=== PATIENT | female | born 1975 | race Caucasian/White ===

== ENCOUNTER 2017-04-08 18:52 | Emergency (ER) | payer OTHER ==
[~2017-04-08] VITALS: Ht 167.6 cm; Wt 73.0 kg
[~2017-04-08 18:52] MED LIST: ALBU8I INH; BENZ100 PO; ZITH250T PO
[2017-04-08 20:00] LABS: BACTERIA, URINE MOD /hpf; BLOOD, URINE NEG (NEG); COMMENT (UR) CULTURE INDICATED; CULTURE IF INDICATED CULTURE INDICATED; GLUCOSE,URINE NEG (NEG); KETONE, URINE NEG (NEG); NITRITE,URINE NEG (NEG); PH, URINE 7.5 (5.0-8.5); SQUAMOUS EPITHELIAL CELL URINE 4 /hpf (0-5); TRANSITIONAL EPI CELLS, URINE 1 /hpf; URINE COLOR YELLOW (YELLW/STRAW)
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
[2017-04-08 20:14] VITALS: RESP 16
[2017-04-08 20:15] VITALS: BP 110/80; PULSE 92
[2017-04-08] MEDS ORDERED: MACR100C2 PO (20:17)
[2017-04-08] MEDS ORDERED: CELE20TA PO (21:27)
[2017-04-08] MEDS ORDERED: GABA100C4 PO (21:27)
[2017-04-08] MEDS ORDERED: TRAZ50TA12 PO (21:27)
[2017-04-08] MEDS ORDERED: PRED10PA2 PO (21:57)
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
[2017-04-08] MEDS ORDERED: TETANUS/DIPHTHERIA TOXOID ADULT 0.5 ML VIAL IM ONE (22:00)
[2017-04-08] MEDS ORDERED: predniSONE 20 MG TAB PO ONE (22:00)
== END 2017-04-08 22:50 | disposition home or self-care (01) ==
LOC: HOBED 18:52 → NEPD 22:50
DX: O23.43 Unspecified infection of urinary tract in pregnancy, third trimester (principal); R60.0 Localized edema; R20.0 Anesthesia of skin; S91.312A Laceration without foreign body, left foot, initial encounter; M25.512 Pain in left shoulder; W22.8XXA Striking against or struck by other objects, initial encounter; Z23 Encounter for immunization; Z72.0 Tobacco use; Z87.09 Personal history of other diseases of the respiratory system; Z86.59 Personal history of other mental and behavioral disorders; Z3A.35 35 weeks gestation of pregnancy
CPT/HCPCS: 81001; 87086; 90471; 90714; 99283; J7512